=== PATIENT | male | born 1965 | race Caucasian/White ===

== ENCOUNTER 2018-11-29 11:47 | Day surgery (SDC) | payer OTHER ==
[~2018-11-29] VITALS: Ht 172.7 cm; Wt 79.1 kg
[~2018-11-29 11:47] MED LIST: ANXIETY MED; CLOP75TA27 PO; ESOM20CA; GLYB5TAB3 PO; LANT3I SC; METF100010 PO; METO-335 PO; OMEP40CA6 PO
[2018-11-29] MEDS ORDERED: BASAGLAR (13:45)
[2018-11-29] MEDS ORDERED: HUMULOG (13:45)
[2018-11-29] MEDS ORDERED: atorvastatin (13:45)
[2018-11-29] MEDS ORDERED: sucralfate (13:46)
[2018-11-29] MEDS ORDERED: metoclopramide (13:46)
[2018-11-29] MEDS ORDERED: escitalopram (13:47)
[2018-11-29] MEDS ORDERED: pantoprazole (13:47)
[2018-11-29 13:48] VITALS: BP 140/74; PULSE 74; RESP 12
[2018-11-29] MEDS ORDERED: LIDOCAINE 2% (SDV) 5 ML INJ ONE (14:57)
[2018-11-29] MEDS ORDERED: PROPOFOL 60 ML ONE (14:57)
--- NOTE | 2018-11-29 14:57 | PREAC ---
Date/Time of Note Date/Time of Note DATE: 11/29/18 TIME: 14:54 Anesthesia Eval and Record Evaluation Time Pre-Procedure Interview DATE: 11/29/18 TIME: 14:54 Age 53 Sex male NPO: 8 hrs Preoperative diagnosis Nausea/vomiting, colon screening Planned procedure EGD/ colonoscopy Past Medical History Past Medical History: Includes Cardio: HTN, Dyslipidemia, [place], CAD, CABG, PPM/AICD Endo: Diabetes Pulm: COPD Surgery & Anesthesia Issues No known issue Meds Anticoagulation: No Beta Izabella within 24 hr: Yes Reported Medications [pantoprazole] No Conflict Check 11/29/18 [escitalopram] No Conflict Check 11/29/18 [sucralfate] No Conflict Check 11/29/18 [metoclopramide] No Conflict Check 11/29/18 [basaglar kwikpen] No Conflict Check 11/29/18 [atorvastatin] No Conflict Check 11/29/18 [humulog] No Conflict Check 11/29/18 [anxiety med.] No Conflict Check 03/10/16 Insulin Glargine* (Lantus*) 100 Unit/Ml Soln, 1 UNIT SC DAILY, #1 VIAL 03/10/16 Clopidogrel Bisulfate (Clopidogrel) 75 Mg Tablet, 75 MG PO DAILY, #30 TAB 03/10/16 Metformin Hcl* (Metformin Hcl*) 1,000 Mg Tablet, 1000 MG PO WITH BREAKFAST DINNE PRN for bid, #60 TAB 03/10/16 Metoprolol Succinate* (Toprol XL*) 25 Mg Tab.sr.24h, 25 MG PO DAILY, #30 TAB 03/10/16 Esomeprazole Mag Trihydrate (Nexium) 20 Mg Capsule. 04/13/11 Discontinued Reported Medications Omeprazole* (Omeprazole*) 40 Mg Capsule., 40 MG PO DAILY, #30 CAP 03/10/16 Glyburide* (Glyburide*) 5 Mg Tablet, 5 MG PO BID, #60 TAB 03/10/16 Meds reviewed: Yes Allergies Coded Allergies: No Known Drug Allergies (Verified Allergy, Mild, 11/29/18) Allergies Reviewed: Yes Labs/Studies Labs Reviewed: Reviewed by anesthesiologist test: N/A Studies: ECG Pre-procedure Exam Last vitals Vital Signs Date Temp Pulse Resp B/P (MAP) Pulse Ox O2 O2 Flow FiO2 Time Delivery Rate 11/29/18 98.6 74 12 140/74 98 Room Air 13:48 (96) Airway: Adequate mouth opening, Adequate thyromental dist Mallampati: Mallampati III Teeth: Normal Lung: Normal Heart: Normal ASA Physical Status ASA physical status: 3 Emergency: None Planned Anesthetic General/MAC: MAC Planned Pain Management Parenteral pain med Pre-operative Attestations Prior to commencing anesthesia and surgery, the patient was re-evaluated, there was verification of: *The patient's identity *The results of appropriate recent lab work and preoperative vital signs *The above evaluation not changing prior to induction *Anesthetic plan, risk benefits, alternative and complications discussed with patient/family; questions answered; patient/family understands, accepts and wishes to proceed. JULIANNA JORDAN MD Nov 29, 2018 14:57
[2018-11-29 15:20] VITALS: BP 91/56; PULSE 68; RESP 12
--- NOTE | 2018-11-29 15:22 | PAC ---
Date/Time of Note Date/Time of Note DATE: 11/29/18 TIME: 15:22 Post-Anesthesia Notes Post-Anesthesia Note Last documented vital signs Vital Signs Date Temp Pulse Resp B/P (MAP) Pulse Ox O2 O2 Flow FiO2 Time Delivery Rate 11/29/18 98.6 74 12 140/74 98 Room Air 13:48 (96) Activity: WNL Respiratory function: WNL Cardiovascular function: WNL Mental status: Baseline Pain reasonably controlled: Yes Hydration appropriate: Yes Nausea/Vomiting absent: Yes Comments BP:105/56, pulse:76, spo2:100%, T:98,8 JULIANNA JORDAN MD Nov 29, 2018 15:22
[2018-11-29 15:30] VITALS: BP 93/54; PULSE 69; RESP 12
[2018-11-29] MEDS ORDERED: ONDANSETRON 4 MG INJ IV PRN (15:30)
[2018-11-29] MEDS ORDERED: FENTAnyl 50 MCG/ML VIAL IV PRN (15:30)
[2018-11-29] MEDS ORDERED: DIPHENHYDRAMINE 50 MG INJ IV PRN (15:30)
[2018-11-29] MEDS ORDERED: HYDROmorphONE 1 MG/5 ML IV SYRINGE IV PRN ×2 (15:30)
[2018-11-29 15:45] VITALS: BP 101/59; RESP 16
== END 2018-11-29 16:27 | disposition home or self-care (01) ==
LOC: GIL 11:47
PROVIDERS: ATTEND Internal Medicine Gastroenterology
DX: Z12.11 Encounter for screening for malignant neoplasm of colon (principal); K64.8 Other hemorrhoids; K52.9 Noninfective gastroenteritis and colitis, unspecified; K29.00 Acute gastritis without bleeding; E11.9 Type 2 diabetes mellitus without complications; E78.00 Pure hypercholesterolemia, unspecified; Z91.19 Patient's noncompliance with other medical treatment and regimen
CPT/HCPCS: 43239; 45380; 82962; 88305; Z7610